=== PATIENT | female | born 1980 | race African-American/Black ===

== ENCOUNTER 2021-02-08 07:36 | Emergency (ER) | payer MEDICAID ==
[~2021-02-08] VITALS: Ht 167.6 cm; Wt 66.0 kg
[2021-02-08] MEDS ORDERED: DIPHENHYDRAMINE 25MG CAPSULE PO ONE (09:30)
[2021-02-08] MEDS ORDERED: METOCLOPRAMIDE HCL 10MG TABLET PO ONE (09:30)
[2021-02-08] MEDS ORDERED: KETOROLAC 30MG/ML VIAL IM NR (09:30)
[2021-02-08] MEDS ORDERED: KETOROLAC 15MG/ML VIAL IM ONE (09:30)
[2021-02-08 09:53] VITALS: BP 128/98
== END 2021-02-08 09:55 | disposition home or self-care (01) ==
LOC: ER 07:36
DX: R51.9 Headache, unspecified (principal); Z87.828 Personal history of other (healed) physical injury and trauma; Z98.890 Other specified postprocedural states
CPT/HCPCS: 70450; 81025; 96372; 99284; J1885; Z7610; J8597; Q0163

== ENCOUNTER 2022-04-14 01:06 | Inpatient (IN) | payer MEDICAID ==
[~2022-04-14] VITALS: Ht 167.6 cm; Wt 66.7 kg
[~2022-04-14 01:06] MED LIST: DOCU-138 MT; HYDR-4001 PO
[2022-04-14] MEDS ORDERED: ONDANSETRON HCL 4MG/2ML INJ IV STA (01:48)
[2022-04-14] MEDS ORDERED: SODIUM CHLORIDE 0.9% 1,000 ML IV ONE ×2 (02:00→05:30)
[2022-04-14 02:31] LABS: BASOPHILS % 0.7 % (0.0-2.0); EOSINOPHILS % 0.6 % (0.0-5.0); HEMATOCRIT. 40.7 % (36.0-48.0); HEMOGLOBIN. 13.7 g/dL (12.0-16.0); LYMPHOCYTES % 22.1 % (20.0-50.0); MEAN CORPUSCULAR HEMOGLOBIN 32.1 pg (28.0-32.0); MEAN CORPUSCULAR VOLUME 95.1 fL (81.0-99.0); MEAN PLATELET VOLUME 7.5 fl (7.4-10.4); MONOCYTES % 9.1 % (2.0-8.0); NEUTROPHILS % 67.5 % (40.0-76.0); PLATELET 481 x1000/uL (130-400); RED BLOOD CELL COUNT 4.28 mill/uL (4.2-5.4); RED CELL DISTRIBUTION WIDTH 15.6 % (11.6-14.6)
[2022-04-14 02:38] LABS: PROTHROMBIN TIME 10.9 sec (9.6-11.0)
[2022-04-14 02:42] LABS: CHLORIDE 85 mEq/L (98-107)
[2022-04-14 02:51] LABS: HCG SCREEN NEGATIVE
[2022-04-14 02:52] LABS: ETHANOL BLOOD < 10 mg/dL
[2022-04-14] MEDS ORDERED: KCL 20MEQ/100ML PREMIX 100 ML IV NR (04:15)
[2022-04-14] MEDS ORDERED: PANTOPRAZOLE SODIUM 40 MG/VIAL IV NR (04:15)
[2022-04-14] MEDS ORDERED: ONDANSETRON HCL 4MG/2ML INJ IV NR (04:45)
[2022-04-14] MEDS ORDERED: METOCLOPRAMIDE HCL 10MG/2ML VIAL IV ONE (05:30)
[2022-04-14] MEDS ORDERED: MORPHINE SULFATE 4 MG/ML CPJ (NOT FOR IM USE) IV ONE (08:00)
[2022-04-14] MEDS: SUCRALFATE 1G TABLET PO SCH ×2 (09:00→13:11)
[2022-04-14] MEDS: SODIUM CHLORIDE 0.9% 1,000 ML IV SCH (11:56)
[2022-04-14] MEDS: POTASSIUM CHLORIDE 20MEQ TABLET SR PO SCH (11:56)
[2022-04-14 20:00] VITALS: BP 119/78
[2022-04-14 21:57] LABS: CLARITY URINE CLEAR (CLEAR); COLOR URINE DARK YELLOW (YELLOW); KETONES URINE 3+ (NEGATIVE); LEUKOCYTE ESTERASE URINE NEGATIVE (NEGATIVE); NITRITE URINE NEGATIVE (NEGATIVE); OCCULT BLOOD URINE TRACE (NEGATIVE); PH URINE 6.5 (4.5-8.0); PROTEIN URINE TRACE (NEGATIVE); SPECIFIC GRAVITY URINE 1.027 (1.005-1.030)
[2022-04-14 22:06] LABS: *AMPHETAMINES SCREEN URINE NEGATIVE (NEGATIVE); *BARBITURATES SCREEN URINE NEGATIVE (NEGATIVE); *BENZODIAZEPINES SCREEN URINE NEGATIVE (NEGATIVE); *COCAINE SCREEN URINE NEGATIVE (NEGATIVE); METHADONE URINE SCREEN NEGATIVE (NEGATIVE); PHENCYCLIDINE URINE SCREEN NEGATIVE (NEGATIVE)
[2022-04-14 22:07] LABS: CANNABINOID URINE SCREEN PRESUMTIVE POSITIVE (NEGATIVE); OPIATES URINE SCREEN PRESUMTIVE POSITIVE (NEGATIVE)
[2022-04-15] VITALS: BP 117/79
[2022-04-15] MEDS: SODIUM CHLORIDE 0.9% 1,000 ML IV SCH (01:05)
[2022-04-15 04:00] VITALS: BP 121/74
[2022-04-15 06:37] LABS: BASOPHILS % 0.7 % (0.0-2.0); EOSINOPHILS % 1.2 % (0.0-5.0); HEMATOCRIT. 34.2 % (36.0-48.0); HEMOGLOBIN. 11.6 g/dL (12.0-16.0); LYMPHOCYTES % 27.8 % (20.0-50.0); MEAN CORPUSCULAR HEMOGLOBIN 32.4 pg (28.0-32.0); MEAN CORPUSCULAR VOLUME 95.3 fL (81.0-99.0); MEAN PLATELET VOLUME 7.8 fl (7.4-10.4); MONOCYTES % 8.8 % (2.0-8.0); NEUTROPHILS % 61.5 % (40.0-76.0); PLATELET 408 x1000/uL (130-400); RED BLOOD CELL COUNT 3.59 mill/uL (4.2-5.4); RED CELL DISTRIBUTION WIDTH 15.4 % (11.6-14.6)
[2022-04-15 07:33] LABS: CHLORIDE 96 mEq/L (98-107)
[2022-04-15 08:00] VITALS: BP 112/85
[2022-04-15] MEDS: POTASSIUM CHLORIDE 20MEQ TABLET SR PO SCH (08:13)
[2022-04-15] MEDS: KCL 20MEQ/100ML PREMIX 100 ML IV SCH ×2 (10:22→12:15)
[2022-04-15 12:00] VITALS: BP 114/84
[2022-04-15 12:19] LABS: HEPATITIS B SURFACE ANTIGEN NEGATIVE
[2022-04-15] MEDS ORDERED: POTASSIUM CHLORIDE 20MEQ/PACKET PO NR (13:00)
[2022-04-15 16:00] VITALS: BP 141/92
[2022-04-15] MEDS ORDERED: ONDANSETRON HCL 4MG/2ML INJ IV PRN (16:15)
[2022-04-15] MEDS: METOCLOPRAMIDE HCL 10MG/2ML VIAL IV SCH (16:20)
[2022-04-15 20:00] VITALS: BP 148/98
[2022-04-16] VITALS: BP 154/107
[2022-04-16] MEDS: METOCLOPRAMIDE HCL 10MG/2ML VIAL IV SCH ×3 (00:03→17:26)
[2022-04-16 04:00] VITALS: BP 116/85
[2022-04-16 08:00] VITALS: BP 102/66
[2022-04-16] MEDS: POTASSIUM CHLORIDE 20MEQ TABLET SR PO SCH (11:06)
[2022-04-16] MEDS ORDERED: METO-293 MT (11:20)
[2022-04-16 12:00] VITALS: BP 121/85
[2022-04-16 16:00] VITALS: BP 102/66
== END 2022-04-16 18:43 | disposition home or self-care (01) | DRG 249 ==
LOC: ER 01:06 → 7WST 09:10 → ENRESERV 13:30 → 6EST 04-15 20:12
PROVIDERS: ADMIT Internal Medicine; ATTEND Internal Medicine
DX: K52.9 Noninfective gastroenteritis and colitis, unspecified (principal); K76.0 Fatty (change of) liver, not elsewhere classified; E87.1 Hypo-osmolality and hyponatremia; E87.6 Hypokalemia; Z98.891 History of uterine scar from previous surgery
CPT/HCPCS: 36415; 76705; 80048; 80053; 80305; 80320; 81003; 83735; 84132; 84703; 85025; 86803; 87340; 99285; C1893; C9113; J2270; J2405; J2765; J3480; J7030; G0480

== ENCOUNTER 2022-06-29 14:22 | Emergency (ER) | payer MEDICAID ==
[~2022-06-29] VITALS: Ht 160 cm; Wt 71.0 kg
[~2022-06-29 14:22] MED LIST changes: +METO-293 MT
[2022-06-29] MEDS ORDERED: ONDANSETRON 4MG ODT PO ONE (15:00)
[2022-06-29] MEDS ORDERED: FAMOTIDINE 20MG/2ML VIAL IV STA (17:14)
[2022-06-29] MEDS ORDERED: ONDANSETRON HCL 4MG/2ML INJ IV STA (17:14)
[2022-06-29] MEDS ORDERED: HALOPERIDOL LACTATE 5MG/ML VIAL IM ONE (17:15)
[2022-06-29] MEDS ORDERED: SODIUM CHLORIDE 0.9% 1,000 ML IV ONE (17:15)
[2022-06-29] MEDS ORDERED: MAGNESIUM/ALUMINUM HYDROXIDE/SIMETHICONE 30ML UDC PO STA (17:17)
[2022-06-29] MEDS ORDERED: VISCOUS LIDOCAINE 2% 15 ML UDC PO STA (17:17)
[2022-06-29 18:14] LABS: HEMATOCRIT. 39.8 % (36.0-48.0); HEMOGLOBIN. 13.2 g/dL (12.0-16.0); MEAN CORPUSCULAR HEMOGLOBIN 30.9 pg (28.0-32.0); MEAN CORPUSCULAR VOLUME 93.1 fL (81.0-99.0); MEAN PLATELET VOLUME 7.4 fl (7.4-10.4); PLATELET 467 x1000/uL (130-400); RED BLOOD CELL COUNT 4.28 mill/uL (4.2-5.4)
[2022-06-29 18:32] LABS: CHLORIDE 87 mEq/L (98-107); HCG SCREEN NEGATIVE
[2022-06-29] MEDS ORDERED: POTASSIUM CHLORIDE 20MEQ/PACKET PO ONE (19:00)
[2022-06-29 19:03] LABS: CLARITY URINE CLEAR (CLEAR); COLOR URINE YELLOW (YELLOW); KETONES URINE 4+ (NEGATIVE); LEUKOCYTE ESTERASE URINE NEGATIVE (NEGATIVE); NITRITE URINE NEGATIVE (NEGATIVE); OCCULT BLOOD URINE NEGATIVE (NEGATIVE); PROTEIN URINE 1+ (NEGATIVE); SPECIFIC GRAVITY URINE 1.025 (1.005-1.030)
[2022-06-29 19:54] LABS: PLATELET ESTIMATE INCREASED
[2022-06-30 03:15] VITALS: BP 102/70
== END 2022-06-30 05:21 | disposition home or self-care (01) ==
LOC: ER 14:22
DX: R11.2 Nausea with vomiting, unspecified (principal); Z98.890 Other specified postprocedural states
CPT/HCPCS: 36415; 80053; 81003; 83690; 84703; 85025; 96361; 96372; 96374; 96375; 99284; J1630; J2405; J3490; J7030; Z7610

== ENCOUNTER 2022-12-11 20:51 | Emergency (ER) | payer MEDICAID ==
[~2022-12-11] VITALS: Ht 175.3 cm; Wt 59.0 kg
[2022-12-11 21:08] VITALS: O2SAT 99
[2022-12-11 22:49] LABS: BASOPHILS % 0.4 % (0.0-2.0); EOSINOPHILS % 1.6 % (0.0-5.0); HEMATOCRIT. 36.7 % (36.0-48.0); HEMOGLOBIN. 11.6 g/dL (12.0-16.0); LYMPHOCYTES % 34.7 % (20.0-50.0); MEAN CORPUSCULAR HEMOGLOBIN 27.7 pg (28.0-32.0); MEAN CORPUSCULAR HGB CONC 31.6 g/dL (31.0-37.0); MEAN CORPUSCULAR VOLUME 87.4 fL (81.0-99.0); MEAN PLATELET VOLUME 8.2 fl (7.4-10.4); MONOCYTES % 5.7 % (2.0-8.0); NEUTROPHILS % 57.6 % (40.0-76.0); PLATELET 366 x1000/uL (130-400); RED CELL DISTRIBUTION WIDTH 16.8 % (11.6-14.6); WHITE BLOOD COUNT 6.3 x1000/uL (4.5-11.0)
[2022-12-11 22:57] LABS: CALCIUM 8.6 mg/dL (8.5-10.1); CHLORIDE 113 mEq/L (98-107); INDEX HEMOLYSI 1 (1-3); INDEX ICTERIC 1 (1-4); INDEX LIPEMIC 1 (1-3); POTASSIUM 3.8 mEq/L (3.5-5.1); SODIUM 143 mEq/L (136-145)
[2022-12-11 22:58] LABS: HCG SCREEN NEGATIVE
[2022-12-11 23:00] LABS: *AMPHETAMINES SCREEN URINE NEGATIVE (NEGATIVE); *BARBITURATES SCREEN URINE NEGATIVE (NEGATIVE); *COCAINE SCREEN URINE NEGATIVE (NEGATIVE); ECSTASY MDMA SCREEN URINE NEGATIVE (NEGATIVE); OPIATES URINE SCREEN NEGATIVE (NEGATIVE); PHENCYCLIDINE URINE SCREEN NEGATIVE (NEGATIVE)
[2022-12-11 23:01] LABS: *BENZODIAZEPINES SCREEN URINE PRESUMTIVE POSITIVE (NEGATIVE); CANNABINOID URINE SCREEN PRESUMTIVE POSITIVE (NEGATIVE)
[2022-12-11 23:03] LABS: ALANINE AMINOTRANSFERASE 20 IU/L (13-61); ALBUMIN 3.1 g/dL (3.4-5.0); ASPARTATE AMINOTRANSFERASE 23 IU/L (15-37); BILIRUBIN TOTAL 0.1 mg/dL (0.1-1.0); CARBON DIOXIDE 21 mEq/L (21-32); CREATININE 0.7 mg/dL (0.6-1.3); ETHANOL BLOOD 295 mg/dL (<10); GLUCOSE 80 mg/dL (70-105); PROTEIN TOTAL 7.2 g/dL (6.0-8.3); UREA NITROGEN BLOOD 3 mg/dL (7-21)
[2022-12-11 23:30] VITALS: TEMP 97.8
[2022-12-12 01:00] VITALS: BP 109/84; PULSE 87; RESP 16
== END 2022-12-12 01:53 | disposition home or self-care (01) ==
LOC: ER 20:51
DX: F10.129 Alcohol abuse with intoxication, unspecified (principal); F17.200 Nicotine dependence, unspecified, uncomplicated; Y90.8 Blood alcohol level of 240 mg/100 ml or more
CPT/HCPCS: 80053; 80305; 80320; 84703; 85025; 36415; 99283; Z7610 ×2; G0480

== ENCOUNTER 2023-02-18 23:41 | Emergency (ER) | payer MEDICAID ==
[~2023-02-18] VITALS: Ht 167.6 cm; Wt 48.0 kg
[2023-02-18 23:43] VITALS: BP 115/84; PULSE 84; RESP 16; TEMP 97.9; O2SAT 100
== END 2023-02-19 04:07 | disposition left against medical advice (07) ==
LOC: ER 23:41
DX: Z53.21 Procedure and treatment not carried out due to patient leaving prior to being seen by health care provider (principal)
CPT/HCPCS: 99281

== ENCOUNTER 2023-02-19 13:32 | Emergency (ER) | payer MEDICAID ==
[~2023-02-19] VITALS: Ht 167.6 cm; Wt 275.0 kg
[2023-02-19 14:17] VITALS: BP 109/74; PULSE 89; RESP 16; TEMP 98.5; O2SAT 100
== END 2023-02-19 17:51 | disposition left against medical advice (07) ==
LOC: ER 13:32
DX: Z53.21 Procedure and treatment not carried out due to patient leaving prior to being seen by health care provider (principal)
CPT/HCPCS: 99281

== ENCOUNTER 2023-02-20 00:54 | Emergency (ER) | payer MEDICAID ==
[~2023-02-20] VITALS: Ht 165.1 cm; Wt 56.0 kg
[2023-02-20 01:21] VITALS: BP 117/85; PULSE 91; RESP 18; TEMP 98.4; O2SAT 98
== END 2023-02-20 05:00 | disposition left against medical advice (07) ==
LOC: ER 00:54
DX: S61.512A Laceration without foreign body of left wrist, initial encounter (principal); Z53.21 Procedure and treatment not carried out due to patient leaving prior to being seen by health care provider; X58.XXXA Exposure to other specified factors, initial encounter; Y93.89 Activity, other specified; Y92.89 Other specified places as the place of occurrence of the external cause; Y99.8 Other external cause status
CPT/HCPCS: 99281

== ENCOUNTER 2024-07-24 20:06 | Emergency (ER) | payer MEDICAID ==
[~2024-07-24] VITALS: Ht 170.2 cm; Wt 68.0 kg
[~2024-07-24 20:06] MED LIST changes: -HYDR-4001 PO
[2024-07-24 20:25] VITALS: O2SAT 99
[2024-07-24 21:38] LABS: BASOPHILS % 0.3 % (0.0-2.0); EOSINOPHILS % 0.6 % (0.0-5.0); HEMATOCRIT. 39.1 % (36.0-48.0); HEMOGLOBIN. 12.8 g/dL (12.0-16.0); LYMPHOCYTES % 14.7 % (20.0-50.0); MEAN CORPUSCULAR HEMOGLOBIN 28.2 pg (28.0-32.0); MEAN CORPUSCULAR HGB CONC 32.6 g/dL (31.0-37.0); MEAN CORPUSCULAR VOLUME 86.3 fL (81.0-99.0); MEAN PLATELET VOLUME 7.9 fl (7.4-10.4); NEUTROPHILS % 78.4 % (40.0-76.0); PLATELET 348 x1000/uL (130-400); RED BLOOD CELL COUNT 4.53 mill/uL (4.2-5.4); WHITE BLOOD COUNT 13.7 x1000/uL (4.5-11.0)
[2024-07-24 21:47] LABS: CHLORIDE 91 mEq/L (98-107); SODIUM 134 mEq/L (136-145)
[2024-07-24 21:48] LABS: CARBON DIOXIDE 31 mEq/L (21-32); PROTHROMBIN TIME 10.7 sec (9.6-11.0)
[2024-07-24 21:49] LABS: CALCIUM 9.1 mg/dL (8.7-10.4)
[2024-07-24 21:51] LABS: HCG SCREEN NEGATIVE
[2024-07-24 21:53] LABS: GLUCOSE 104 mg/dL (70-105)
[2024-07-24 21:54] LABS: CREATININE 1.3 mg/dL (0.6-1.0); TROPONIN I HIGH SENSITIVITY 7 ng/L (3.0-34); UREA NITROGEN BLOOD 24 mg/dL (9-23)
[2024-07-24 21:55] LABS: ALANINE AMINOTRANSFERASE < 7 IU/L (10-49); ALBUMIN 4.2 g/dL (3.2-4.8); ASPARTATE AMINOTRANSFERASE 16 IU/L (<34); BILIRUBIN DIRECT 0.1 mg/dL (<=3.0); POTASSIUM 2.2 mEq/L (3.5-5.1)
[2024-07-24 21:56] LABS: BILIRUBIN TOTAL 0.5 mg/dL (0.1-1.0); PROTEIN TOTAL 7.9 g/dL (6.0-8.3)
[2024-07-24] MEDS: POTASSIUM CHLORIDE 20MEQ TABLET SR PO ONE (22:11)
[2024-07-24] MEDS: LACTATED RINGERS 1,000 ML IV ONE (22:49)
[2024-07-24 23:40] VITALS: BP 119/75; PULSE 79; RESP 15; TEMP 36.2; O2SAT 100
== END 2024-07-25 00:14 | disposition short-term general hospital (02) ==
LOC: ER 20:06
DX: E87.6 Hypokalemia (principal); R94.31 Abnormal electrocardiogram [ECG] [EKG]; R55 Syncope and collapse; F12.90 Cannabis use, unspecified, uncomplicated; F41.9 Anxiety disorder, unspecified; Z98.890 Other specified postprocedural states; Z79.899 Other long term (current) drug therapy
CPT/HCPCS: 99291; 96360; 70450; 80076; 80048; 84703; 83880; 83690; 83735; 85025; 85610; 84484; 36415; 93005; J7120